=== PATIENT | female | born 1965 | race Caucasian/White ===

== ENCOUNTER 2016-07-11 16:20 | Emergency (ER) | payer OTHER ==
[2016-07-11 16:20] VITALS: BMI 29.3
[2016-07-11 16:27] VITALS: O2SAT 99
--- NOTE | 2016-07-11 17:48 | RAD ---
PROCEDURE: CHEST RADIOGRAPH, 1 VIEW HISTORY: chest pain COMPARISON: None available. FINDINGS: LUNGS: Clear. PLEURA: No pneumothorax or pleural fluid seen. CARDIOVASCULAR: Normal. OSSEOUS STRUCTURES: No significant abnormalities. VISUALIZED UPPER ABDOMEN: Normal. OTHER FINDINGS: None. IMPRESSION: No active disease.
[2016-07-11 18:27] LABS: BASO # 0.1 K/uL (0.0-0.2); BASO % 0.6 % (0.0-2.0); EOS # 0.1 K/uL (0.0-0.7); EOS % 1.5 % (0.0-4.0); LYMPH # 2.2 K/uL (1.0-4.3); LYMPH % 21.7 % (20.0-40.0); MEAN CELL VOLUME 84.6 fL (81.0-99.0); MEAN CORPUSCULAR HEMOGLOBIN 27.8 pg (27.0-31.0); MEAN CORPUSCULAR HGB CONC 32.8 g/dL (33.0-37.0); MEAN PLATELET VOLUME 8.7 fL (7.2-11.7); MONO # 0.4 K/uL (0.0-0.8); MONO % 3.7 % (0.0-10.0); RED CELL DISTRIBUTION WIDTH 13.1 % (11.5-14.5)
--- NOTE | 2016-07-11 18:37 | C.PDOC ---
History Of Present Illness The patient, a 51 y/o female, presents to the ED for evaluation of sharp substernal chest pain which has been occurring in intermittent episodes for approximately 1 week. Patient states she was evaluated by her PMD, who prescribed Flexeril. Patient also states she is currently undergoing evaluation by a Credit Operations Specialist. Patient denies fever, chills, shortness of breath, cough, abdominal pain, or recent trauma. Chief Complaint (Nursing): Chest Pain History Per: Patient History/Exam Limitations: no limitations Onset/Duration Of Symptoms: Intermittent Episodes (around 1 week ) Current Symptoms Are (Timing): Still Present Quality: Sharp, "Pain" Associated Symptoms: denies: Nausea ( ) Exacerbating Factors: None Additional History Per: Patient Past Medical History Reviewed: Historical Data, Nursing Documentation, Vital Signs Vital Signs: Last Vital Signs Temp 97.7 F 07/11/16 16:24 Pulse 88 07/11/16 16:24 Resp 20 07/11/16 16:24 BP 158/83 H 07/11/16 16:24 Pulse Ox 99 07/11/16 18:49 - Medical History PMH: Anxiety, Back Problems (with multiple epidurals), Fibromyalgia, Gastritis Surgical History: [facility]ole[facility] (08/2012) [place] [facility] Procedures ESOPHAGOGASTRODUODENOSCOPY [EGD] W/CLOSED BIOPSY (10/25/12) INTRAOPER CHOLANGIOGRAM (09/06/12) LAPAROSCOPIC CHOLECYSTECTOMY (09/06/12) Family History: States: No Known Family Hx - Social History Hx Tobacco Use: No Hx Alcohol Use: No Hx Substance Use: No - Immunization History Hx Tetanus Toxoid Vaccination: No Hx Influenza Vaccination: No Hx Pneumococcal Vaccination: No Review Of Systems Except As Marked, All Systems Reviewed And Found Negative. Constitutional: Negative for: Fever, Chills Cardiovascular: Positive for: Other (+subternal chest pain ) Respiratory: Negative for: Cough, Shortness of Breath Gastrointestinal: Negative for: Abdominal Pain Physical Exam - Physical Exam Appears: Non-toxic, No Acute Distress Skin: Normal Color, Warm, Dry Head: Atraumatic, Normacephalic Eye(s): bilateral: Normal Inspection Oral Mucosa: Moist Neck: Normal ROM, Supple Chest: Symmetrical, No Deformity, Tenderness (to sub-xyphoid area on palpation ) Cardiovascular: Rhythm Regular, No Murmur Respiratory: Normal Breath Sounds, No Rales, No Rhonchi, No Wheezing Gastrointestinal/Abdominal: Soft, No Tenderness, No Guarding, No Rebound Back: Normal Inspection, No Vertebral Tenderness, No Paraspinal Tenderness Extremity: Normal ROM, Capillary Refill (less than 2 seconds) Neurological/Psych: Oriented x3, Normal Speech, Normal Cognition Gait: Steady ED Course And Treatment - Laboratory Results Result Diagrams: 07/11/16 18:23 07/11/16 18:23 ECG: Interpreted By Me, Viewed By Me ECG Rhythm: Sinus Rhythm Rate From EC O2 Sat by Pulse Oximetry: 99 (on RA) Pulse Ox Interpretation: Normal Progress Note: labs, EKG, CXR ordered and reviewed. Patient received Flexeril PO and Toradol IV. Disposition - Disposition Disposition Time: 19:00 Condition: UNKNOWN - Clinical Impression Clinical Impression: Pleuritic pain - Scribe Statement The provider has reviewed the documentation as recorded by the Scribe (Sheela Sotomayor) Provider Attestation: All medical record entries made by the Scribe were at my direction and personally dictated by me. I have reviewed the chart and agree that the record accurately reflects my personal performance of the history, physical exam, medical decision making, and the department course for this patient. I have also personally directed, reviewed, and agree with the discharge instructions and disposition.
[2016-07-11 18:41] LABS: CHLORIDE 95 mmol/L (98-107); POTASSIUM 4.1 mmol/L (3.6-5.2); SODIUM 136 mmol/L (132-148)
[2016-07-11 18:44] LABS: ALB/GLOB RATIO 1.2 (1.0-2.1); ALKALINE PHOSPHATASE 57 U/L (38-126); ALT/SGPT 21 U/L (9-52); AST/SGOT 15 U/L (14-36); BILIRUBIN,TOTAL 0.6 mg/dL (0.2-1.3); BLOOD UREA NITROGEN 11 mg/dL (7-17); CARBON DIOXIDE 27 mmol/L (22-30); GFR AFRICAN-AMERICAN > 60; GLUCOSE,RANDOM 86 mg/dL (65-105); TOTAL PROTEIN 7.1 g/dL (6.3-8.3)
[2016-07-11 18:45] LABS: CALCIUM 8.5 mg/dl (8.6-10.4)
[2016-07-11 19:25] VITALS: BP 109/73; PULSE 72; RESP 16; TEMP 98.2
--- NOTE | 2016-07-12 23:12 | CARD ---
APPROVED REPORT EKG Measurement Heart [id number] <Conclusion> Normal sinus rhythm Normal ECG
== END 2016-07-11 19:25 | disposition home or self-care (01) ==
LOC: C.ER 16:20
DX: R07.81 Pleurodynia (principal)
CPT/HCPCS: 71010; 80053; 84484; 85025; 93005; 96374; 99285; J1885

== ENCOUNTER 2017-06-19 15:16 | Emergency (ER) | payer OTHER ==
[2017-06-19 15:30] VITALS: BMI 28.4
[2017-06-19] MEDS ORDERED: Sodium Chloride 0.9% 1,000 ML IV ONE (15:33)
--- NOTE | 2017-06-19 15:45 | C.PDOC ---
History Of Present Illness 52yo female, presents to ER for evaluation of 2 days of nausea, malaise and dry non-productive cough. She denies any associated vomiting, weakness. She was treated for influenza 3 weeks ago and since then her symptoms had completely resolved. She has no other complaints. HPI: Influenza Time Seen by Provider: 06/19/17 15:27 Chief Complaint: Flu-like Symptoms History Per: Patient Exam Limitations: no limitations Have you had recent travel within the past 21 days to any of the following countries: [place], [place], [place] or [place]?: No Onset/Duration Of Symptoms: Days Symptoms include: bodyaches, other (malaise). denies: vomiting Past Medical History Reviewed: Historical Data, Nursing Documentation, Vital Signs Vital Signs: Last Vital Signs Temp 98.0 F 06/19/17 15:22 Pulse 102 H 06/19/17 15:22 Resp 18 06/19/17 15:22 BP 134/89 06/19/17 15:22 Pulse Ox 98 06/19/17 15:22 - Medical History PMH: Anxiety, Back Problems (with multiple epidurals), Fibromyalgia, Gastritis, Hypercholesterolemia Denies: Chronic Kidney Disease Surgical History: Cholecystectomy (08/2012) - [facility] Procedures ESOPHAGOGASTRODUODENOSCOPY [EGD] W/CLOSED BIOPSY (10/25/12) INTRAOPER CHOLANGIOGRAM (09/06/12) LAPAROSCOPIC CHOLECYSTECTOMY (09/06/12) Family History: States: No Known Family Hx - Social History Hx Tobacco Use: No Hx Alcohol Use: No Hx Substance Use: No - Immunization History Hx Tetanus Toxoid Vaccination: No Hx Influenza Vaccination: No Hx Pneumococcal Vaccination: No Review Of Systems Except As Marked, All Systems Reviewed And Found Negative. Constitutional: Positive for: Malaise. Negative for: Fever, Chills Cardiovascular: Negative for: Chest Pain Respiratory: Positive for: Cough. Negative for: Shortness of Breath, Sputum Gastrointestinal: Positive for: Nausea. Negative for: Vomiting Physical Exam - Physical Exam Appears: Non-toxic, No Acute Distress Skin: Normal Color, Dry Head: Normacephalic Eye(s): bilateral: Normal Inspection Nose: Normal Oral Mucosa: Moist Throat: Normal, No Erythema, No Exudate Neck: Normal ROM, Supple Cardiovascular: Rhythm Regular Respiratory: Normal Breath Sounds, No Wheezing Neurological/Psych: Oriented x3, Normal Speech, Normal Cognition Medical Decision Making Medical Decision Making: Impression: 52yo female with nausea and malaise Plan: -- Labs -- EKG -- CXR -- Pepcid 20 mg IVP -- Toradol 30 mg IVP -- Zofran 4 mg IVP -- IV Fluids baseline anxiety without taking her xanax today and/or narcotics w/d s/s from daily Tramadol, not taken in 2 days. Gabapentin taken PRN may have similar side-effects of malaise/nausea- educated. - Laboratory Results Result Diagrams: 06/19/17 16:02 06/19/17 16:02 Interpretation Of Abn Labs: nl - ECG O2 Sat by Pulse Oximetry: 98 Pulse Ox Interpretation: Normal - Radiology X-Ray: Interpreted by Me X-Ray Interpretation: No Acute Disease - Progress Condition: Re-examined, Improved Disposition Doctor Will See Patient In The: Office Counseled Patient/Family Regarding: Studies Performed, Diagnosis - Disposition Referrals: Doris Doll DO [[facility]] - Disposition: HOME/ ROUTINE Disposition Time: 16:22 Condition: GOOD Additional Instructions: take your gabapentin DAILY and not just on work days. Xanax and Tramadol may have withdrawal symptoms. Take your xanax if you feel anxious. Then seek medical attention AFTERWARDS and still feeling abnormal. Instructions: Fatigue (DC), Anxiety, Adult (DC) Forms: [facility] (Malay) - Clinical Impression Clinical Impression: Anxiety about health, Lethargy - Scribe Statement The provider has reviewed the documentation as recorded by the Scribe (Trinity Chanel) Provider Attestation: All medical record entries made by the Scribe were at my direction and personally dictated by me. I have reviewed the chart and agree that the record accurately reflects my personal performance of the history, physical exam, medical decision making, and the department course for this patient. I have also personally directed, reviewed, and agree with the discharge instructions and disposition.
--- NOTE | 2017-06-19 16:00 | RAD ---
HISTORY: SOB COMPARISON: Chest x-ray performed 07/16/16 TECHNIQUE: Chest, one view. FINDINGS: LUNGS: No focal consolidation. Please note that chest x-ray has limited sensitivity for the detection of pulmonary masses. PLEURA: No significant pleural effusion identified. No definite pneumothorax . CARDIOVASCULAR: Heart size appears within normal limits. OSSEOUS STRUCTURES: No acute osseous abnormality identified. VISUALIZED UPPER ABDOMEN: Unremarkable. OTHER FINDINGS: None. IMPRESSION: No focal consolidation, significant pleural effusion, or definite pneumothorax identified.
[2017-06-19] MEDS ORDERED: Sodium Chloride 0.9% 1,000 ML ONE (16:03)
[2017-06-19 16:06] LABS: BASO # 0.1 K/uL (0.0-0.2); BASO % 1.5 % (0.0-2.0); EOS # 0.1 K/uL (0.0-0.7); EOS % 1.7 % (0.0-4.0); HEMOGLOBIN 13.8 g/dL (11.0-16.0); LYMPH % 18.2 % (20.0-40.0); MEAN CELL VOLUME 84.4 fL (81.0-99.0); MEAN CORPUSCULAR HEMOGLOBIN 28.9 pg (27.0-31.0); MEAN CORPUSCULAR HGB CONC 34.3 g/dL (33.0-37.0); MEAN PLATELET VOLUME 8.8 fL (7.2-11.7); MONO # 0.3 K/uL (0.0-0.8); MONO % 6.1 % (0.0-10.0); NEUT # 3.8 K/uL (1.8-7.0); NEUT % 72.5 % (50.0-75.0); NRBC % 0.1 % (0.0-2.0); RBC 4.78 Mil/uL (3.80-5.20); RED CELL DISTRIBUTION WIDTH 12.6 % (11.5-14.5); WHITE BLOOD COUNT 5.3 K/uL (4.8-10.8)
[2017-06-19 16:08] LABS: SQUAMOUS EPITHIAL 6 /hpf (0-5); URINE BILIRUBIN NEGATIVE (NEGATIVE); URINE BLOOD 2+ (NEGATIVE); URINE CLARITY Hazy (Clear); URINE COLOR Yellow (YELLOW); URINE GLUCOSE (UA) NORMAL (Normal); URINE LEUKOCYTE ESTERASE NEG Leu/uL (Negative); URINE PROTEIN NEGATIVE (NEGATIVE); URINE UROBILINOGEN NORMAL mg/dL (0.2-1.0)
[2017-06-19 16:19] LABS: ALB/GLOB RATIO 1.3 (1.0-2.1); ALT/SGPT 30 U/L (9-52); AST/SGOT 26 U/L (14-36); BLOOD UREA NITROGEN 10 mg/dL (7-17); CALCIUM 8.6 mg/dl (8.6-10.4); GFR AFRICAN-AMERICAN > 60; GFR NON-AFRICAN AMERICAN > 60
[2017-06-19 16:22] LABS: BARBITURATES, UR NEGATIVE (NEGATIVE); OPIATES, UR NEGATIVE (NEGATIVE); PHENCYCLIDINE, UR NEGATIVE (NEGATIVE)
[2017-06-19 16:24] LABS: BENZODIAZEPINES, UR POSITIVE (NEGATIVE)
[2017-06-19 16:33] LABS: B-TYPE NATRIURETIC PEPTIDE 182 pg/mL (0-900)
[2017-06-19 17:25] VITALS: BP 134/76; PULSE 70; RESP 14; TEMP 98.2
[2017-06-21 18:26] VITALS: O2SAT 98
== END 2017-06-19 17:25 | disposition home or self-care (01) ==
LOC: C.ER 15:16
DX: F41.9 Anxiety disorder, unspecified (principal); R53.83 Other fatigue
CPT/HCPCS: 71045; 80053; 80324; 80345; 80346; 80349; 80353; 80358; 80361; 81001; 83880; 83992; 84484; 84703; 85025; 96361; 96374; 96375; 99284; J1885; J2405; J7040

== ENCOUNTER 2018-06-01 15:06 | Emergency (ER) | payer OTHER ==
[2018-06-01 15:06] VITALS: BMI 30.2
[2018-06-01] MEDS ORDERED: Oxycodone/Acetaminophen 5/325 mg Tab PO STA (15:46)
[2018-06-01] MEDS ORDERED: Lidocaine 1% Inj (20ml) INFIL STA (15:47)
[2018-06-01] MEDS ORDERED: Oxycodone/Acetaminophen 5/325 mg Tab ONE (16:07)
--- NOTE | 2018-06-01 16:25 | C.PDOC ---
History Of Present Illness 53 year old female presents to ED with complaint of left lower dental pain for the past 4 days and jaw pain for 1 day. She saw her dentist yesterday and was given antibiotics and penicillin. Patient states the swelling got worsen, dentist wouldn't drain it, and instructed her to come to the ER. Patient denies any numbness or weakness. Time Seen by Provider: 06/01/18 15:29 Chief Complaint (Nursing): Dental Pain History Per: Patient History/Exam Limitations: no limitations Onset/Duration Of Symptoms: Days (4) Current Symptoms Are (Timing): Still Present Quality: Positive for: "Pain" Past Medical History Reviewed: Historical Data, Nursing Documentation, Vital Signs Vital Signs: Last Vital Signs Temp 99 F 06/01/18 15:21 Pulse 97 H 06/01/18 15:21 Resp 20 06/01/18 15:21 BP Pulse Ox 100 06/01/18 15:21 - Medical History PMH: Anxiety, Asthma, Back Problems (with multiple epidurals), Depression, Fibromyalgia, Gastritis, HTN, Hypercholesterolemia, Migraine Denies: Chronic Kidney Disease Surgical History: Cholecystectomy (08/2012) - [facility] Procedures ESOPHAGOGASTRODUODENOSCOPY [EGD] W/CLOSED BIOPSY (10/25/12) INTRAOPER CHOLANGIOGRAM (09/06/12) LAPAROSCOPIC CHOLECYSTECTOMY (09/06/12) - Social History Hx Tobacco Use: No Hx Alcohol Use: No Hx Substance Use: No - Immunization History Hx Tetanus Toxoid Vaccination: No Hx Influenza Vaccination: No Hx Pneumococcal Vaccination: No Review Of Systems Constitutional: Negative for: Fever, Chills, Weakness ENT: Positive for: Mouth Swelling, Other (left lower dental pain and jaw pain ). Negative for: Ear Pain Respiratory: Negative for: Cough, Shortness of Breath Skin: Negative for: Lesions Neurological: Negative for: Weakness, Numbness, Dizziness Physical Exam - Physical Exam Appears: Non-toxic, Other (moderate pain, uncomfortable) Skin: Normal Color, Warm, Dry Head: Atraumatic, Normacephalic, Tenderness (left jaw), Swelling (Left jaw) Gingiva: Erythema, Swelling (tooth #20 and 21) Neck: Normal ROM, Supple Chest: Symmetrical, No Deformity Cardiovascular: Rhythm Regular, No Murmur Respiratory: No Accessory Muscle Use, No Rales, No Rhonchi, No Wheezing Extremity: Capillary Refill (<2 seconds) Extremity: Bilateral: Atraumatic, Normal Color And Temperature Pulses: Left Radial: Normal, Right Radial: Normal Neurological/Psych: Oriented x3, Normal Speech, Normal Cognition ED Course And Treatment O2 Sat by Pulse Oximetry: 100 (RA) Progress Note: Patient given Lidocaine PO and Percocet PO. I&D performed on patient. Patient tolerated I&D. Upon reassessment, patient is resting comfortably, in no distress, and is stable for discharge. Patient is advised to follow up with dentist within 1 week. Patient is advised to return to ED if symptoms persist or worsen. - Incision & Drainage Of Abscess Anesthesia: Lidocaine 1% (approxl 4ml inferior alveolar block left side ) Procedure: Incised W/Scalpel Blade#: (11), Drained Pus (approx 3ml purulent discharge), Probed To Break Up Loculations Disposition Counseled Patient/Family Regarding: Diagnosis, Need For Followup, Rx Given - Disposition Referrals: Francisco Javier Ortega MD [Staff Provider] - Disposition: HOME/ ROUTINE Disposition Time: 16:25 Condition: STABLE Additional Instructions: TAKE ANTIBIOTICS GIVEN TO YOU BY DENTIST UNTIL FINISHED USE PAIN MEDICATION NEEDED FOLLOW UP WITH DENTIST WITHIN 1 WEEK RETURN TO ER IF SYMPTOMS WORSEN Prescriptions: Acetaminophen with Codeine [Tylenol with Codeine #3 Tablet] 1 each PO Q6 PRN #12 tablet PRN Reason: pain Naproxen [Naprosyn] 1 tab PO BID PRN #25 tab PRN Reason: Pain Instructions: Tooth Abscess (DC) Forms: [facility] (Icelandic) Print Language: SOUTH KOREAN - Clinical Impression Clinical Impression: Incision and drainage of abscess, Dental abscess - Scribe Statement The provider has reviewed the documentation as recorded by the Scribe (Gema Morris) All medical record entries made by the Scribe were at my direction and personally dictated by me. I have reviewed the chart and agree that the record accurately reflects my personal performance of the history, physical exam, medical decision making, and the department course for this patient. I have also personally directed, reviewed, and agree with the discharge instructions and disposition.
[2018-06-01 16:33] VITALS: BP 143/87; PULSE 75; RESP 18; TEMP 98.8
[2018-06-01 18:08] VITALS: O2SAT 100
== END 2018-06-01 16:33 | disposition home or self-care (01) ==
LOC: C.ER 15:06
DX: K04.7 Periapical abscess without sinus (principal)